=== PATIENT | female | born 1970 | race African-American/Black ===

== ENCOUNTER 2024-10-14 12:18 | Outpatient (CLI) | payer OTHER, SELFPAY ==
--- OUTSIDE RECORDS SUMMARY | 2024-10-14 12:24 | XMS_ITS | Clinical Summary ---
Author Organization [facility] Address [address] [place] [address] Care Team Providers Care Automotive Alignment Specialist Name Role Phone Jannette Pritchett Primary Care Provi norm Eduard Botello MD Unavailable [phone] Allergies No known active allergies Medications elderberry fruit 50 mg/5 mL syrup Take by mouth Active collagen, hydrolysate, bovine, (collagen, hydr, bovine,, bulk,) 100 % powder Active mv, min #36-iron,carbony l-FA 16 mg iron- 0.38 mg tablet Take by mouth Active zinc gluconate 30 mg tablet Take by mouth Active folic acid 20 mg capsule Take by mouth Active Active Problems Problem Noted Date Diagnosed Date Lax skin 11/15/2022 Elective procedure for unacceptable cosmetic [place] 08/12/2022 Surgical History Surgery Date Site/Laterality Comments LIPOSUCTION Social History Tobacco Use Types Packs/Day Years Used Date Smoking Tobacco: Never Smokeless Tobacco: Never Social Connection and Isolation Panel Answer Date Recorded In a typical week, how many times do you talk on the phone with family, friends, or neighbors? Three times a week 11/15/2022 How often do you get togethe r with friends or relatives? Once a week 11/15/2022 How often do you attend [facility] or amish services? Never 11/15/2022 Do you belong to any clubs o r organizations such as zoroastrian groups, unions, fraternal or athletic groups, or school groups? No 11/15/2022 How often do you attend meet ings of the clubs or organizations you belong to? Never 11/15/2022 Are you , , di vorced, , never , or living with a partner? Patient declined 11/15/2022 AUDIT-C Answer Date Recorded Q1: How often do you have a drink containing alc ohol? 2-4 times a month 11/16/2022 Q2: How many drinks containi ng alcohol do you have on a typical day when you are drinking? 1 or 2 11/16/2022 Q3: How often do you have si x or more drinks on one occasion? Never 11/16/2022 Overall Financial Resource Strain (CARDIA) Answe r Date Recorded How hard is it for you to pa y for the very basics like food, housing, medical care, and heating? Not very hard 11/15/2022 Hunger Vital Sign Answer Date Recorded Within the past 12 months, y ou worried that your food would run out before you got the money to buy more. Never true 11/16/19 23 Within the past 12 months, t he food you bought just didn't last and you didn't have money to get more. Never true 11/15/2022 PRAPARE - Transportation Answer Date Re corded In the past 12 months, has l ack of transportation kept you from medical appointments or from getting medications? No 11/01 In the past 12 months, has l ack of transportation kept you from meetings, work, or from getting things needed for daily living? No 11/15/2022 Housing Stability Vital Sign Answer Rafael e Recorded In the last 12 months, was t here a time when you were not able to pay the mortgage or rent on time? No 11/15/2022 In the last 12 months, how many places have you lived? 1 11/15/2022 In the last 12 months, was t here a time when you did not have a steady place to sleep or slept in a senior care (including now)? No 11/15/2022 Personal Safety Answer Date Recorded Have you ever been in or are you currently in a harmful physical or emotional relationship or is someone making you feel afraid or unsafe? Denies 11/16/2022 Comments No Sex and Gender Information Value Date Recorded Sex Assigned at Not on file Legal Sex Female 3:33 AM STONE OPERATOR Gender Identity Not on file Sexual Orientation Not on file Obstetrics History Last Filed Vital Signs Vital Sign Reading Time Taken Comments Blood Pressure 106/44 11/16/2022 3:40 PM CDT Pulse 83 11/16/2022 3:40 PM CDT Temperature 36.7 C (98.1 F) 11/16/2022 12:00 PM CDT Respiratory Rate 18 11/16/2022 3:35 PM CDT Oxygen Saturation 100% 11/16/2022 3:40 PM CDT Inhaled Oxygen Concentration - - Weight 71.2 kg (157 lb) 10/24/2022 1:50 PM CDT Height 157.5 cm (5' 2) 10/24/2022 1:50 PM CDT Body Mass Index 28.72 10/24/2022 1:50 PM CDT Plan of Treatment Health Maintenance Due Date Last Done Comments Cervical Cancer Screening 1970 Colon Cancer Screening-Colonoscopy 1970 Depression Screening 1970 Hepatitis C Screening 1970 DTaP/Tdap/Td Vaccine (1 - Tdap) 1981 Hepatitis B Screening 1988 Regular Well Visit/Exam 18-64 1988 Breast Cancer Screening-Mammogram 04/25/2018 04/25/2017, 04/05/2016, 12/26/2014 Zoster Vaccine (1 of 2) 2020 Influenza Vaccine (#1) 2024 Pneumococcal vaccine <65 Aged Out No longer eligible based on patient's age to complete this topic Procedures Procedure Name Priority Date/Time Associated Diagnosis Comments MAMMOGRAPHY, TOMOGRAPHY, BILATERAL Routine 04/25/2017 7:24 PM STONE OPERATOR from Last 3 Months or Most Recently Relevant to Health Maintenance Results * MAMMOGRAPHY, TOMOGRAPHY, BILATERAL (04/25/2017 7:24 PM STONE OPERATOR) Anatomical Region Laterality Modality Breast Bilateral Mammography 04/25/2017 7:24 PM STONE OPERATOR Narrative 04/29/2017 7:59 PM STONE OPERATOR LINA BENNETT M.D. FINAL REPORT ACC# Date Time Exam [id number] Apr 25, 2017 13:24:00 [facility] [id number] Scr Mamm dorothy 2v w/ISRAEL Technologist(s): Nathaly Arias; ; EXAMINATION: Mammogram Technique: Bilateral Digital Breast Tomosynthesis, Bilateral C-view 2D Screening mammogram. Views obtained: bilateral craniocaudal and bilateral mediolateral oblique. Computer Aided Detection was performed. Mammogram Findings: The present examination has been compared to a prior imaging study performed at [facility] on 04/05/2016. There are scattered areas of fibroglandular density. There is no suspicious abnormality in either breast. IMPRESSION: Annual screening mammography is recommended. OVERALL FINAL ASSESSMENT: BI-RADS CATEGORY 1: Negative. Requested By: Referral,Self Dictated By: LINA BENNETT M.D. on Apr 29 2017 1:59P This document has been electronically signed by: LINA BENNETT M.D. on Apr 29 2017 1:59P [id number] BENNETT M.D. FINAL REPORT Attending: CHRISTOPHER TSAI Requesting: Referral, Self Requesting Fax: Attending Fax: Attending ID: [id number] Requesting ID: [id number] Report To 1 ID: [id number] Report To 1 Name: , Report To 1 FAX: NextGen Order #: Procedure Note Miscellaneous, Not In File - 04/29/2017 LINA BENNETT M.D. FINAL REPORT ACC# Date Time Exam [id number] Apr 25, 2017 13:24:00 [facility] [id number] [facility] Mamm dorothy 2v w/ISRAEL Technologist(s): Nathaly Arias; ; EXAMINATION: Mammogram Technique: Bilateral Digital Breast Tomosynthesis, Bilateral C-view 2D Screening mammogram. Views obtained: bilateral craniocaudal and bilateral mediolateral oblique. Computer Aided Detection was performed. Mammogram Findings: The present examination has been compared to a prior imaging study performed at [facility] on 04/05/2016. There are scattered areas of fibroglandular density. There is no suspicious abnormality in either breast. IMPRESSION: Annual screening mammography is recommended. OVERALL FINAL ASSESSMENT: BI-RADS CATEGORY 1: Negative. Requested By: Referral,Self Dictated By: LINA BENNETT M.D. on Apr 29 2017 1:59P This document has been electronically signed by: LINA BENNETT M.D. on Apr 29 2017 1:59P [id number] BENNETT M.D. FINAL REPORT Attending: CHRISTOPHER TSAI Requesting: Referral, Self Requesting Fax: Attending Fax: Attending ID: [id number] Requesting ID: [id number] Report To 1 ID: [id number] Report To 1 Name: , Report To 1 FAX: NextGen Order #: us Physician No IMG MAMMO PROCEDURES Final Resul t from Last 3 Months or Most Recently Relevant to Health Maintenance Insurance [facility] Advance Directives For more information, please contact: [phone] * Full Code (Latest Code Status on File) Date Activated Date Inactivated Comments 11/15/2022 5:52 PM 11/17/2022 6:19 AM Care Teams Automotive Alignment Specialist Relationship Specialty Start Date End Date Jannette Pritchett PA [address] [place] [id number] PCP - General Physician Escort Vehicle Driver 11/05/22 Eduard Botello MD [address] [place] [address] [place] [address] Surgeon Plastic Surgery 11/16/22
--- OUTSIDE RECORDS SUMMARY | 2024-10-14 12:24 | XMS_ITS | Clinical Summary ---
Author Organization [email or web address] Address [address] [place] [address] Care Team Providers Care Survey Technician Name Role Phone Unavailable Primary Care Provider Unavailabl e Source Comments [email or web address],non-owned Affiliates and Associated Physician Practices is amultiple site organization consisting of ambulatory clinics and hospital sitesin [place], [place], [place] and [place]. This disclosure is being madepursuant to the Care Everywhere program and may not contain all information available regarding this patient. Last updated 17.[email or web address] Allergies No known active allergies Medications * Be aware that medications may not be up to date on this document. Alwaysverify current medications with the patient. boric acid 600 mg capsule Insert 1 capsule into the vagina at bedtime One in vagina at bedtime 5 nights in a row, then use 2 nights a week only (M,Yancy). 30 capsule 3 05/07/2018 Active COLLAGEN PO Active Family History Medical History Relation Name Comments Hypertension Mother Relation Name Status Comments Mother Social History Tobacco Use Types Packs/Day Years Used Date Smoking Tobacco: Never Smokeless Tobacco: Never Tobacco Cessation:Counseling Given: Not Answered Alcohol Use Standard Drinks/Week Comments Yes 0 (1 standard drink = 0.6 oz pur e alcohol) occ Comments No Sex and Gender Information Value Date Recorded Sex Assigned at Not on file Legal Sex Female 6:12 AM ZONE MAINTENANCE TECHNICIAN Gender Identity Not on file Sexual Orientation Not on file Last Filed Vital Signs Vital Sign Reading Time Taken Comments Blood Pressure 135/66 12/24/2021 9:16 AM CDT Pulse 74 12/24/2021 9:16 AM CDT Temperature 37.2 C (98.9 F) 12/24/2021 8:07 AM CDT Respiratory Rate 15 12/24/2021 9:16 AM CDT Oxygen Saturation 100% 12/24/2021 9:16 AM CDT Inhaled Oxygen Concentration - - Weight 68 kg (150 lb) 07/12/2024 11:39 AM CDT Height 157.5 cm (5' 2) 07/12/2024 11:39 AM CDT Body Mass Index 27.44 07/12/2024 11:39 AM CDT Plan of Treatment Upcoming Encounters Date Type Department Care Team (Late st Contact Info) Description 10/15/2024 2:30 PM CDT Office Visit [facility] - 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 [address] [place] [address] David Carrillo MD [address] [facility] [address] [place], [place] [id number] Health Maintenance Due Date Last Done Comments CT COLONOGRAPHY - COLON CA SCREENING 1970 FIT - COLON CA SCREENING 1970 FLEX SIG - COLON CA SCREENING 1970 LIPID TESTING 1970 HIV SCREENING 1985 HEPATITIS C SCREENING 07/16/1988 DTAP/TDAP/TD VACCINES (1 - Tdap) 1989 HEPATITIS B VACCINE (1 of 3 - 19+ 3-dose series) 1989 SCREENING FOR DIABETES 05/07/2018 PNEUMOCOCCAL VACCINE 50+ (1 of 1 - PCV) 2020 ZOSTER VACCINE (1 of 2) 2020 PAP with HPV 05/08/2023 05/07/2018 COVID-19 VACCINE (3 - 2023- season) 2023 11/16/2020, 10/26/2020 DEPRESSION SCREENING 03/03/2024 COLOGUARD (AGES 45-75) - COLON CA SCREENING 05/30/2024 05/30/2021 INFLUENZA VACCINE (#1) 2024 MAMMOGRAM 07/12/2026 07/12/2024, 08/02, 08/29/2021, Additional history exists COLON MONITORING 12/25/2031 12/24/2021, 12/24/2021 COLONOSCOPY - COLON CA SCREENING 12/25/2031 12/24/2021, 12/24/2021 Colorectal Cancer Screening 12/25/2031 HIB VACCINE Aged Out No longer eligi ble based on patient's age to complete this topic HPV VACCINE Aged Out No longer eligi ble based on patient's age to complete this topic MENINGOCOCCAL (Group B) VACCINE SHARED DECISION-MAKING Aged Out No longer eligible based on patient's age to complete this topic MENINGOCOCCAL GROUPS A/C/Y/W VACCINE Aged Out No longer eligible based on patient's age to complete this topic Procedures Procedure Name Priority Date/Time Associated Diagnosis Comments MAMMO BILAT SCREENING W VLAD Routine 07/12/2024 11:53 AM CDT Screening mammogram for breast cancer ENDOSCOPY, COLON, SCREENING Routine 12/24/2021 7:53 AM CDT Screen for colon cancer HPV DETECTION HIGH RISK MARIA TERESA Routine 05/07/2018 11:37 AM ZONE MAINTENANCE TECHNICIAN Well woman exam with routine gynecological exam from Last 3 Months or Most Recently Relevant to Health Maintenance Results * Mammo Bilat Screening W Vlad (07/12/2024 11:53 AM CDT) Anatomical Region Laterality Modality Breast Bilateral Mammography 07/12/2024 4:43 PM CDT Impressions 07/12/2024 4:47 PM CDT IMPRESSION: No mammographic evidence of malignancy in either breast. ASSESSMENT: BIRADS Category 1: Negative mammogram. RECOMMENDATION: Bilateral screening mammogram in one year. Thank you for allowing us to participate in the care of your patient. [facility] utilizes SuperTruper as a reminder system to notify patients of their next recommended mammogram. > Interpreting Provider: Rocio Jacobo MD on 07/12/2024 4:47 PM Narrative 07/12/2024 4:47 PM CDT EXAMINATION: Digital screening mammogram. Low-dose full-field digital breast tomosynthesis examination was performed with synthetic 2D images. Computer assisted detection was utilized. DATE: 07/12/2024 11:54 AM PRIOR: 2022 and prior mammograms dating back to 2019. BREAST PARENCHYMAL DENSITY: The breasts are heterogeneously dense, which may obscure small masses. FINDINGS: No suspicious masses, areas of architectural distortion or microcalcifications are evident on synthetic 2D mammogram or tomosynthesis images. us Jannette Pritchett PA-C MAMMO ORDERABLES Lin l Result * ENDOSCOPY, COLON, SCREENING (12/24/2021 7:53 AM CDT) Report Endoscopy POC _ Patient Name: David Mercado Procedure Date: 12/24/2021 7:53 AM Date of : 1970 Admit Type: Outpatient Age: 51 Gender: Female Ethnicity: Not or Race: Black or Attending MD: Yareli Solano MD _ Procedure: Colonoscopy Indications: Screening for colorectal malignant neoplasm Providers: Yareli Solano MD (Doctor), Harley Chen RN Patient Profile: 51F presents for screening colonoscopy avg risk. no prior exams Referring MD: Jannette Pritchett (Referring MD) Medicines: Monitored Anesthesia Care Complications: No immediate complications. _ Estimated Blood Loss: Estimated blood loss: none. Procedure: Pre-Anesthesia Assessment: - Prior to the procedure, a History and Physical was performed, and patient medications and allergies were reviewed. The patient's tolerance of previous anesthesia was also reviewed. The risks and benefits of the procedure and the sedation options and risks were discussed with the patient. All questions were answered, and informed consent was obtained. Prior Anticoagulants: The patient has taken no previous anticoagulant or antiplatelet agents. ASA Grade Assessment: II - A patient with mild systemic disease. After reviewing the risks and benefits, the patient was deemed in satisfactory condition to undergo the procedure. After I obtained informed consent, the scope was passed under direct vision. Throughout the procedure, the patient's blood pressure, pulse, and oxygen saturations were monitored continuously. The Colonoscope was introduced through the anus and advanced to the cecum, identified by appendiceal orifice and ileocecal valve. The colonoscopy was performed without difficulty. The patient tolerated the procedure well. The quality of the bowel preparation was adequate to identify polyps 6 mm and larger in size. The ileocecal valve, appendiceal orifice, and rectum were photographed. Impression: - The entire examined colon is normal on direct and retroflexion views. - No specimens collected. Findings: The perianal and digital rectal examinations were normal. The entire examined colon appeared normal on direct and retroflexion views. _ Recommendation: - Patient has a contact number available for emergencies. The signs and symptoms of potential delayed complications were discussed with the patient. Return to normal activities tomorrow. Written discharge instructions were provided to the patient. - High fiber diet. - Repeat colonoscopy in 7-10 years for screening purposes. Procedure Code(s): --- Professional --- 51417, Colonoscopy, flexible; diagnostic, including collection of specimen(s) by brushing or washing, when performed (separate procedure) --- Technical --- 85432, Colonoscopy, flexible; diagnostic, including collection of specimen(s) by brushing or washing, when performed (separate procedure) Diagnosis Code(s): --- Professional --- Z12.11, Encounter for screening for malignant neoplasm of colon --- Technical --- Z12.11, Encounter for screening for malignant neoplasm of colon CPT copyright 2019 [employer]. All rights reserved. The codes documented in this report are preliminary and upon avionics repair technician review may be revised to meet current compliance requirements. Yareli Solano MD 12/24/2021 9:24:02 AM This report has been signed electronically. Number of Addenda: 0 Note Initiated On: 12/24/2021 7:53 AM [facility] ENDOSCOPY 12/24/2021 7:53 AM CDT Narrative Procedure Note Yareli Solano MD - 12/24/2021 9:24 AM CDT Normal colonoscopy Rpt 10 yrs D/w David us Yareli Solano MD GI PROCEDURE ORDERABLES Edited R esult - Final [facility] ENDOSCOPY * HPV DETECTION HIGH RISK MARIA TERESA (05/07/2018 11:37 AM ZONE MAINTENANCE TECHNICIAN) High Risk Human Papilloma Result Not Detected Not Detected 05/11/2018 4:40 PM CDT [facility] High Risk Human Papilloma Interp 05/11/2018 4:40 PM CDT [facility] Comment:High Risk Human Sammy lloma Virus was Not Detected. Pathology/Cytolo gy MISCELLANEOUS SAMPLES / Unknown 05/07/2018 11:37 AM ZONE MAINTENANCE TECHNICIAN 05/08/2018 11:37 AM ZONE MAINTENANCE TECHNICIAN Narrative [facility] - 05/11/2018 4:40 PM CDT Nucleic acid isolated from the specimen was analyzed with a nucleic acid amplification test (FDA approved Gen-Probe HPV Assay) to detect high risk human papilloma virus (Types: 16, 18, 31, 33, 35, 39, 45, 51, 52, 56, 58, 59, 66, and 68). The reference range is Not Detected. Comment: These test results should not be used as the sole basis for clinical assessment and treatment of patients. These results should always be correlated with other available data (cytology, histology, and clinical information). us David Carrillo MD LAB - MICROBIOLOGY ORDERABLES Fi nal Result [facility] [address] [place] [address], [facility] [phone] from Last 3 Months or Most Recently Relevant to Health Maintenance Insurance [facility]
[2024-10-14 12:57] LABS: Hematocrit 38.7 % (37.0-47.0); Hemoglobin 12.8 g/dL (12.0-15.0); Immature Granulocyte Percent A 0.2 % (0-0.5); Lymphocytes Absolute Auto 2.04 K/mm3 (0.9-3.2); Mean Corpuscular HGB Conc 33.1 g/dl (32-36); Mean Corpuscular Hemoglobin 26.9 pg (26-34); Mean Corpuscular Volume 81.5 fl (80-100); Nucleated Red Blood Cells Absolute Auto 0.000 K/mm3 (0.0-0.012); Nucleated Red Blood Cells Perc 0.0 % (0.0-0.2); Platelet Count Result 219 k/mm3 (150-375); Red Blood Count 4.75 M/mm3 (4.2-5.4); White Blood Count 4.0 K/mm3 (4.5-10.0)
[2024-10-14 13:27] LABS: Alanine Aminotransferase 13 U/L (6-35); Albumin Level 4.2 g/dL (3.5-5.1); Alkaline Phosphatase 72 U/L (38-126); Anion Gap 5 mmol/L (4-12); Aspartate Amino Transferase 24 U/L (14-36); Bilirubin,Total 0.5 mg/dL (0.2-1.3); Blood Urea Nitrogen 10 mg/dL (7-17); Calcium 9.2 mg/dL (8.4-10.2); Carbon Dioxide 27 mmol/L (22-30); Chloride 108 mmol/L (98-107); Estimated Glomerular Filt Rate > 60; Glucose 84 mg/dL (65-110); Potassium 4.0 mmol/L (3.4-5.0); Sodium 140 mmol/L (137-145); Total Protein 7.5 g/dL (6.3-8.2)
[2024-10-14 13:49] LABS: Syphilis IgG/IgM Antibody Non-Reactive (Nonreactive)
[2024-10-14 13:51] LABS: Hepatitis B Surface Antigen Negative (Negative)
[2024-10-14 13:57] LABS: HAV RESULT Negative (Negative); Hepatitis B Core IgM Result Negative (Negative)
[2024-10-14 13:58] LABS: HIV 1/2 Ab P24 Ag Result Negative (Negative)
[2024-10-14 14:06] LABS: Thyroid Stimulating Hormone Reflex 0.775 uIU/mL (0.465-4.68)
[2024-10-14 14:30] LABS: Ferritin 37.00 ng/mL (11.1-264)
[2024-10-14 14:54] LABS: Vitamin B12 461.0 pg/mL (239-931)
[2024-10-15 07:09] LABS: HSV 1 IgG, Type Spec Reactive (Non Reactive); HSV 2 IgG, Type Spec Reactive (Non Reactive); LH 70.7 mIU/mL (.)
[2024-10-21 18:08] LABS: Estradiol, Sensitive 13.3 pg/mL (.)
== END 2024-10-14 12:19 | disposition home or self-care (01) ==
LOC: ANHLAB 12:21
PROVIDERS: Visit Provider Obstetrics & Gynecology
DX: N93.9 Abnormal uterine and vaginal bleeding, unspecified (principal); R53.83 Other fatigue; Z20.2 Contact with and (suspected) exposure to infections with a predominantly sexual mode of transmission
CPT/HCPCS: 36415; 80053; 80074; 82306; 82607; 82670; 82728; 82746; 83002; 84443; 85025; 86593; 86695; 86696; 86703; G0432

== ENCOUNTER 2024-11-11 10:31 | Outpatient (CLI) | payer OTHER, SELFPAY ==
[2024-11-11 11:11] LABS: Hemoglobin A1C 4.1 % (<5.7)
[2024-11-11 11:14] LABS: Cholesterol 234 mg/dL (0-200); HDL Direct 56 mg/dL; Triglycerides 76 mg/dL (<150)
[2024-11-11 11:17] LABS: Iron 63 ug/dL (37-170)
[2024-11-11 11:28] LABS: Percent Iron Saturation 24 % (20-50)
--- OUTSIDE RECORDS SUMMARY | 2024-11-11 11:57 | XMS_ITS | Clinical Summary ---
Author Organization [facility] Address [address] [place] [address] Care Team Providers Care Therapist Rrt Name Role Phone Jannette Pritchett Primary Care Provi norm Eduard Botello MD Unavailable [phone] Allergies No known active allergies Medications elderberry [...] week 11/15/2022 How often do you attend [facility] or rastafari services? Never 11/15/2022 Do you belong to any clubs o r organizations such as episcopalian groups, unions, fraternal or athletic groups, or [...] place to sleep or slept in a skilled nursing (including now)? No 11/15/2022 Personal Safety Answer Date Recorded Have you ever been in or are you currently in a harmful physical or emotional relationship or is someone making you feel afraid or unsafe? Denies 11/16/2022 Comments No Sex and Gender Information Value Date Recorded Sex Assigned at Not on file Legal Sex Female 3:33 AM MANAGER OF ORGANIZATIONAL DEVELOPMENT Gender Identity Not on file Sexual Orientation [...] MAMMOGRAPHY, TOMOGRAPHY, BILATERAL Routine 04/25/2017 7:24 PM MANAGER OF ORGANIZATIONAL DEVELOPMENT from Last 3 Months or Most Recently Relevant to Health Maintenance Results * MAMMOGRAPHY, TOMOGRAPHY, BILATERAL (04/25/2017 7:24 PM MANAGER OF ORGANIZATIONAL DEVELOPMENT) Anatomical Region Laterality Modality Breast Bilateral Mammography 04/25/2017 7:24 PM MANAGER OF ORGANIZATIONAL DEVELOPMENT Narrative 04/29/2017 7:59 PM MANAGER OF ORGANIZATIONAL DEVELOPMENT LINA BENNETT M.D. FINAL REPORT ACC# Date Time Exam [id number] Apr 25, 2017 13:24:00 [facility] [id number] Scr Mamm dorothy 2v w/ISRAEL Technologist(s): Nathaly Arias; ; EXAMINATION: Mammogram Technique: Bilateral Digital Breast Tomosynthesis, Bilateral C-view 2D Screening mammogram. Views obtained: bilateral craniocaudal and bilateral mediolateral oblique. Computer Aided Detection was performed. Mammogram Findings: The present examination has been compared to a prior imaging study performed at [facility] on 04/05/2016. There are scattered areas of fibroglandular density. There is no suspicious abnormality in either breast. IMPRESSION: Annual screening mammography is recommended. OVERALL FINAL ASSESSMENT: BI-RADS CATEGORY 1: Negative. Requested By: Referral,Self Dictated By: LINA BENNETT M.D. on Apr 29 2017 1:59P This document has been electronically signed by: LINA BENNETT M.D. on Apr 29 2017 1:59P [id number] BENNETT M.D. FINAL REPORT Attending: CHRISTOPHER TSAI Requesting: Referral, Self Requesting Fax: Attending Fax: Attending ID: [id number] Requesting ID: [id number] Report To 1 ID: [id number] Report To 1 Name: , Report To 1 FAX: NextGen Order #: Procedure Note Miscellaneous, Not In File - 04/29/2017 LINA BENNETT M.D. FINAL REPORT ACC# Date Time Exam [id number] Apr 25, 2017 13:24:00 [facility] [id number] Mamm dorothy 2v w/ISRAEL Technologist(s): Nathaly Arias; ; EXAMINATION: Mammogram Technique: Bilateral Digital Breast Tomosynthesis, Bilateral C-view 2D Screening mammogram. Views obtained: bilateral craniocaudal and bilateral mediolateral oblique. Computer Aided Detection was performed. Mammogram Findings: The present examination has been compared to a prior imaging study performed at [facility] on 04/05/2016. There are scattered areas of fibroglandular density. There is no suspicious abnormality in either breast. IMPRESSION: Annual screening mammography is recommended. OVERALL FINAL ASSESSMENT: BI-RADS CATEGORY 1: Negative. Requested By: Referral,Self Dictated By: LINA BENNETT M.D. on Apr 29 2017 1:59P This document has been electronically signed by: LINA BENNETT M.D. on Apr 29 2017 1:59P [id number] BENNETT M.D. FINAL REPORT Attending: CHRISTOPHER TSAI Requesting: Referral, Self Requesting Fax: Attending Fax: Attending ID: [id number] Requesting ID: [id number] Report To 1 ID: [id number] Report To 1 Name: , Report To 1 FAX: NextGen Order #: us Physician No IMG MAMMO PROCEDURES Final Resul t from Last 3 Months or Most Recently Relevant to Health Maintenance Insurance [facility] Advance Directives For more information, please contact: [phone] * Full Code (Latest Code Status on File) Date Activated Date Inactivated Comments 11/15/2022 5:52 PM 11/17/2022 6:19 AM Care Teams Therapist Rrt Relationship Specialty Start Date End Date Jannette Pritchett PA [address] [place] [id number] PCP - General Physician Juvenile Court Judge 11/05/22 Eduard Botello MD [address] [place] [address] [place] [address] Surgeon Plastic Surgery 11/16/22
[2024-11-12 07:09] LABS: FSH 138.0 mIU/mL (.)
== END 2024-11-11 10:32 | disposition home or self-care (01) ==
LOC: ANHLAB 10:32
PROVIDERS: Visit Provider Obstetrics & Gynecology
DX: N93.9 Abnormal uterine and vaginal bleeding, unspecified (principal); R53.83 Other fatigue
CPT/HCPCS: 36415; 80061; 83001; 83036; 83540; 83550; 84144

== ENCOUNTER 2024-12-03 13:45 | Outpatient (CLI) | payer OTHER, SELFPAY ==
--- NOTE | ~2024-12-03 | MR_ITS ---
EXAMINATION: MR shoulder RT wo con DATE: 12/03/2024 14:31 INDICATION: Right shoulder pain TECHNIQUE: Magnetic resonance imaging (MRI) of the right shoulder was performed without intravenous contrast. Sequences included axial PD-weighted FS FSE, coronal oblique PD-weighted FS FSE, coronal oblique T2-weighted FS FSE, sagittal PD-weighted FS FSE, and sagittal T1-weighted SE. COMPARISON: None. FINDINGS: Coracoacromial arch: The acromion undersurface is curved in morphology (type II) with lateral downsloping. Small subacromial spur along the lateral margin of the posterior acromion. The coracoacromial ligament is normal. Mild acromioclavicular osteoarthritis. Rotator cuff: Moderate supraspinatus and mild infraspinatus tendinopathy. There is an intrasubstance tear of the distalmost supraspinatus tendon extending 1.2 cm anteroposteriorly along the superior facet of the greater tuberosity and involving <1/3 of the tendon thickness. The teres minor tendon is normal. Moderate subscapularis tendinopathy without discrete tear. Normal rotator cuff muscle bulk and signal. Biceps tendon, glenoid labrum and glenohumeral cartilage: Moderate tendinopathy of the long head biceps tendon with partial-thickness tear occurring at the cephalad aspect of the intertubercular groove with attenuation of the more proximal intra-articular portion of the tendon. Likely chronic degeneration of the posterior glenoid labrum with minimal residual labral tissue extending from the 7:00-10:30 position. Mild partial-thickness cartilage loss with smooth chondral surface along the inferomedial margin of the humeral head and at the cephalad half of the glenoid. Fluid: Small glenohumeral joint effusion. There is small amount of fluid tenosynovitis in the long head biceps tendon sheath. Moderate amount fluid in the subacromial/subdeltoid and subcoracoid bursae consistent with bursitis. No loose osteochondral bodies. Bones: Bone alignment is normal. No fracture or pathologic marrow replacing process. Mild cystic change underlying the superior facet of the greater tuberosity consistent with chronic rotator cuff disease. IMPRESSION: 1. Moderate supraspinatus and subscapularis and mild infraspinatus tendinopathy with small mild partial-thickness intrasubstance tear along the superior facet but of the supraspinatus tendon. 2. Mild glenohumeral osteoarthritis with likely chronic degeneration of the posterior glenoid labrum where there is minimal residual labral tissue. 3. Moderate tendinopathy and partial thickness tear of the long head biceps tendon with mild bicipital tenosynovitis. 4. Moderate subacromial/subdeltoid and subcoracoid bursitis. Reviewed, dictated and finalized at location A. IMPRESSION: 1. Moderate supraspinatus and subscapularis and mild infraspinatus tendinopathy with small mild partial-thickness intrasubstance tear along the superior facet but of the supraspinatus tendon. 2. Mild glenohumeral osteoarthritis with likely chronic degeneration of the pos terior glenoid labrum where there is minimal residual labral tissue. 3. Moderate tendinopathy and partial thickness tear of the long head biceps ten don with mild bicipital tenosynovitis. 4. Moderate subacromial/subdeltoid and subcoracoid bursitis.
--- OUTSIDE RECORDS SUMMARY | 2024-12-03 13:48 | XMS_ITS | Clinical Summary ---
Author Organization [facility] Address [address] [place] [address] Care Team Providers Care Technology Applications Consultant Name Role Phone Jannette Pritchett Primary Care Provi norm Eduard Botello MD Unavailable [phone] Allergies No known active allergies Medications elderberry [...] week 11/15/2022 How often do you attend [facility] or gnosticist services? Never 11/15/2022 Do you belong to any clubs o r organizations such as caodaism groups, unions, fraternal or athletic groups, or [...] place to sleep or slept in a longterm (including now)? No 11/15/2022 Personal Safety Answer Date Recorded Have you ever been in or are you currently in a harmful physical or emotional relationship or is someone making you feel afraid or unsafe? Denies 11/16/2022 Comments No Sex and Gender Information Value Date Recorded Sex Assigned at Not on file Legal Sex Female 3:33 AM PHOTO MANAGER Gender Identity Not on file Sexual Orientation [...] MAMMOGRAPHY, TOMOGRAPHY, BILATERAL Routine 04/25/2017 7:24 PM PHOTO MANAGER from Last 3 Months or Most Recently Relevant to Health Maintenance Results * MAMMOGRAPHY, TOMOGRAPHY, BILATERAL (04/25/2017 7:24 PM PHOTO MANAGER) Anatomical Region Laterality Modality Breast Bilateral Mammography 04/25/2017 7:24 PM PHOTO MANAGER Narrative 04/29/2017 7:59 PM PHOTO MANAGER LINA BENNETT M.D. FINAL REPORT ACC# Date Time Exam [id number] Apr 25, 2017 13:24:00 [facility] [id number] Scr Mamm dorothy 2v w/ISRAEL Technologist(s): Nathaly Arias; ; EXAMINATION: Mammogram Technique: Bilateral Digital Breast Tomosynthesis, Bilateral C-view 2D Screening mammogram. Views obtained: bilateral craniocaudal and bilateral mediolateral oblique. Computer Aided Detection was performed. Mammogram Findings: The present examination has been compared to a prior imaging study performed at [facility] on 04/05/2016. There are scattered areas of fibroglandular density. There is no suspicious abnormality in either breast. IMPRESSION: Annual screening mammography is recommended. OVERALL FINAL ASSESSMENT: BI-RADS CATEGORY 1: Negative. Requested By: Referral,Self Dictated By: LINA BENNETT M.D. on Apr 29 2017 1:59P This document has been electronically signed by: LINA BENNETT M.D. on Apr 29 2017 1:59P [id number] BENNETT M.D. FINAL REPORT Attending: CHRISTOPHER TSAI Requesting: Referral, Self Requesting Fax: Attending Fax: Attending ID: [id number] Requesting ID: [id number] Report To 1 ID: [id number] Report To 1 Name: , Report To 1 FAX: NextGen Order #: Procedure Note Miscellaneous, Not In File - 04/29/2017 LINA BENNETT M.D. FINAL REPORT ACC# Date Time Exam [id number] Apr 25, 2017 13:24:00 [facility] [id number] [facility] Mamm dorothy 2v w/ISRAEL Technologist(s): Nathaly Arias; ; EXAMINATION: Mammogram Technique: Bilateral Digital Breast Tomosynthesis, Bilateral C-view 2D Screening mammogram. Views obtained: bilateral craniocaudal and bilateral mediolateral oblique. Computer Aided Detection was performed. Mammogram Findings: The present examination has been compared to a prior imaging study performed at [facility] on 04/05/2016. There are scattered areas of fibroglandular density. There is no suspicious abnormality in either breast. IMPRESSION: Annual screening mammography is recommended. OVERALL FINAL ASSESSMENT: BI-RADS CATEGORY 1: Negative. Requested By: Referral,Self Dictated By: LINA BENNETT M.D. on Apr 29 2017 1:59P This document has been electronically signed by: LINA BENNETT M.D. on Apr 29 2017 1:59P [id number] BENNETT M.D. FINAL REPORT Attending: CHRISTOPHER TSAI Requesting: Referral, Self Requesting Fax: Attending Fax: Attending ID: [id number] Requesting ID: [id number] Report To 1 ID: [id number] Report To 1 Name: , Report To 1 FAX: NextGen Order #: us Physician No IMG MAMMO PROCEDURES Final Resul t from Last 3 Months or Most Recently Relevant to Health Maintenance Insurance [facility] Advance Directives For more information, please contact: [phone] * Full Code (Latest Code Status on File) Date Activated Date Inactivated Comments 11/15/2022 5:52 PM 11/17/2022 6:19 AM Care Teams Technology Applications Consultant Relationship Specialty Start Date End Date Jannette Pritchett PA [address] [place] [id number] PCP - General Physician Janitorial Supervisor 11/05/22 Eduard Botello MD [address] [place] [address] [place] [id number] Surgeon Plastic Surgery 11/16/22
== END 2024-12-03 13:46 | disposition home or self-care (01) ==
PROVIDERS: Visit Provider Orthopaedic Surgery
DX: M67.813 Other specified disorders of tendon, right shoulder (principal); M19.011 Primary osteoarthritis, right shoulder; S46.111A Strain of muscle, fascia and tendon of long head of biceps, right arm, initial encounter; M75.21 Bicipital tendinitis, right shoulder; M75.51 Bursitis of right shoulder; X58.XXXA Exposure to other specified factors, initial encounter
CPT/HCPCS: 73221